=== PATIENT | male | born 1965 | race Caucasian/White ===

== ENCOUNTER 2018-10-08 11:40 | Emergency (ER) | payer OTHER ==
--- NOTE | 2018-10-08 13:18 | RAD REPORT ---
EXAM DESCRIPTION: RAD - Chest Pa And Lat (2 Views) - 10/08/2018 1:06 pm CLINICAL HISTORY: Cough;Chest pain Chest pain. COMPARISON: No comparisons FINDINGS: The lungs are clear. The heart is normal in size. No displaced fractures. IMPRESSION: No acute or concerning finding suspected.
--- NOTE | 2018-10-08 13:44 | EDPHYS ---
Physician Documentation [facility] Name: Demetrius Castanon Age: 53 yrs Sex: Male : 1965 Arrival Date: 10/08/2018 Time: 11:41 Bed 2 Private MD: Elizabeth Austin H ED Physician Sher Reece HPI: 10/08 12:02 This 53 yrs old Male presents to ER via Ambulatory with complaints of Chest rn Pain. 12:02 The patient or guardian reports chest pain that is located primarily in the chest rn diffusely. 12:02 Onset: 3 day(s) ago. The pain does not radiate. Associated signs and symptoms: rn Pertinent positives: cough, Pertinent negatives: abdominal pain, diaphoresis, dizziness, headache, lightheadedness, nausea, near syncope, palpitations, recent travel, shortness of breath, syncope, vomiting. The chest pain is described as sharp. Duration: The patient or guardian reports multiple episodes, that are intermittent. Modifying factors: The symptoms are alleviated by nothing. the symptoms are aggravated by cough. Severity of pain: At its worst the pain was mild in the emergency department the pain is unchanged. The patient has not experienced similar symptoms in the past. Reports chest pain, both sides, when coughs, recently [facility] , given zithromax for bronchitis, reports multiple family members sick recently, + productive cough, no dyspnea, no hx of dvt/pe, no hx of heart problems. Afebrile. Reports tomorrow last day of abx for him. Chest pain only lasts for a few minutes and really only when he coughs. . Historical: - Allergies: 11:44 Aspirin; sv - PMHx: 11:44 None; sv - PSHx: 11:44 None; sv - Immunization history:: Flu vaccine is up to date. - Social history:: Smoking status: Patient/guardian denies using tobacco. - Ebola Screening: : No symptoms or risks identified at this time. - Family history:: not pertinent. - Hospitalizations: : No recent hospitalization is reported. ROS: 12:02 Constitutional: Negative for fever, chills, and weight loss, Eyes: Negative for injury, rn pain, redness, and discharge, Cardiovascular: Negative for palpitations, and edema Respiratory: Negative for shortness of breath, wheezing Abdomen/GI: Negative for abdominal pain, nausea, vomiting, diarrhea, and constipation, MS/Extremity: Negative for injury and deformity, Skin: Negative for injury, rash, and discoloration, Neuro: Negative for headache, weakness, numbness, tingling, and seizure. Exam: 12:02 Constitutional: This is a well developed, well nourished patient who is awake, alert, rn and in no acute distress. Head/Face: Normocephalic, atraumatic. ENT: MMM, no stridor Cardiovascular: Regular rate and rhythm with a normal S1 and S2. No JVD. No pulse deficits. Respiratory: Lungs have equal breath sounds bilaterally, clear to auscultation, No rales, rhonchi or wheezes noted. No increased work of breathing, no retractions or nasal flaring. Skin: Warm, dry with normal turgor. Normal color with no rashes, no lesions, and no evidence of cellulitis. MS/ Extremity: Pulses equal, no cyanosis. Neurovascular intact. Full, normal range of motion. Equal circumference. Neuro: Awake and alert, GCS 15, oriented to person, place, time, and situation. Cranial nerves II-XII grossly intact. Motor strength 5/5 in all extremities. Sensory grossly intact. Vital Signs: 11:45 BP 148 / 91; Pulse 78; Resp 20; Pulse Ox 97% ; Weight 90.72 kg; Height 6 ft. 2 in. sv (187.96 cm); Pain 7/10; 13:13 BP 112 / 68; Pulse 64; Resp 18; Pulse Ox 97% on R/A; aj1 11:45 Body Mass Index 25.68 (90.72 kg, 187.96 cm) sv MDM: 11:52 Patient medically screened. rn 13:41 Differential diagnosis: acute pericarditis, coronary artery disease chest wall pain, rn costochondritis, pericarditis, pleurisy, pneumonia, pneumothorax. Data reviewed: vital signs, nurses notes, EKG, radiologic studies, plain films, and as a result, I will discharge patient. Counseling: I had a detailed discussion with the patient and/or guardian regarding: the historical points, exam findings, and any diagnostic results supporting the discharge/admit diagnosis, radiology results, the need for outpatient follow up, to return to the emergency department if symptoms worsen or persist or if there are any questions or concerns that arise at home. Special discussion: I discussed with the patient/guardian in detail that at this point there is no indication for admission to the hospital. It is understood, however, that if the symptoms persist or worsen the patient needs to return immediately for re-evaluation. ED course: Pt with normal CXR, normal ECG, normal vitals, most likely not improving because viral process given multiple family members with symptoms, already on abx. Will dc home with pcp f/u and OTC anti-inflammatory. . 10/08 12:01 Order name: XRAY Chest Pa And Lat (2 Views) rn 10/08 12:01 Order name: EKG; Complete Time: 12: rn 10/08 12:01 Order name: EKG - Nurse/Tech; Complete Time: 12:04 rn Administered Medications: No medications were administered Disposition: 10/08/18 13:43 Discharged to Home. Impression: Chest pain, unspecified, Pleurisy. - Condition is Stable. - Discharge Instructions: Nonspecific Chest Pain, Pleurisy, Cough, Adult. - Medication Reconciliation Form, Thank You Letter, Antibiotic Education, Prescription Opioid Use form. - Follow up: Private Physician; When: As needed; Reason: Recheck today's complaints, Re-evaluation by your physician. - Problem is new. - Symptoms have improved. Signatures: Dispatcher [employer] EDMS Therese Keene RN RN aj1 Mackenzie Chang RN RN sv Sher Reece MD MD turner in: (The following items were deleted from the chart) 13:54 13:43 10/08/2018 13:43 Discharged to Home. Impression: Chest pain, unspecified; aj1 Pleurisy. Condition is Stable. Forms are Medication Reconciliation Form, Thank You Letter, Antibiotic Education, Prescription Opioid Use. Follow up: Private Physician; When: As needed; Reason: Recheck today's complaints, Re-evaluation by your physician. Problem is new. Symptoms have improved. rn
--- NOTE | 2018-10-08 13:44 | ER ---
Nurse's Notes [facility] Name: Demetrius Castanon Age: 53 yrs Sex: Male : 1965 Arrival Date: 10/08/2018 Time: 11:41 Bed 2 Private MD: Elizabeth Austin H Diagnosis: Chest pain, unspecified;Pleurisy Presentation: 10/08 11:43 Presenting complaint: Patient states: midsternal chest pain started a few days ago was sv seen at [place], but today the pain is worse than before. c/o headache, toothpain, productive cough, denies nausea/vomiting. Transition of care: patient was not received from another setting of care. Onset of symptoms was September 2018. Care prior to arrival: None. 11:43 Method Of Arrival: Ambulatory sv 11:43 Acuity: DEVONTE 3 sv 13:53 Risk Assessment: Do you want to hurt yourself or someone else?. Initial Sepsis Screen: aj1 Does the patient meet any 2 criteria? No. Patient's initial sepsis screen is negative. Does the patient have a suspected source of infection? Yes: Productive cough/pneumonia. Historical: - Allergies: 11:44 Aspirin; sv - PMHx: 11:44 None; sv - PSHx: 11:44 None; sv - Immunization history:: Flu vaccine is up to date. - Social history:: Smoking status: Patient/guardian denies using tobacco. - Ebola Screening: : No symptoms or risks identified at this time. - Family history:: not pertinent. - Hospitalizations: : No recent hospitalization is reported. Screenin:00 Abuse screen: Denies threats or abuse. Denies injuries from another. Nutritional aj1 screening: No deficits noted. Tuberculosis screening: No symptoms or risk factors identified. 13:53 Fall Risk None identified. aj1 Assessment: 12:00 General: Appears in no apparent distress. comfortable, Behavior is calm, cooperative, aj1 appropriate for age. Pain: Complains of pain in chest Pain does not radiate. Quality of pain is described as tightness Pain began 2-3 days ago. Is intermittent. Neuro: Level of Consciousness is awake, alert, obeys commands. Cardiovascular: Reports chest pain, shortness of breath, Heart tones S1 S2 present Patient's skin is warm and dry. Respiratory: Reports cough that is productive, Airway is patent Respiratory effort is even, unlabored, Respiratory pattern is regular, symmetrical, Breath sounds are clear bilaterally. GI: No signs and/or symptoms were reported involving the gastrointestinal system. : No signs and/or symptoms were reported regarding the genitourinary system. Derm: No signs and/or symptoms reported regarding the dermatologic system. Skin is pink, warm \T\ dry. normal. Musculoskeletal: No signs and/or symptoms reported regarding the musculoskeletal system. Circulation, motion, and sensation intact. 13:13 Reassessment: Patient appears in no apparent distress at this time. No changes from aj1 previously documented assessment. Patient and/or family updated on plan of care and expected duration. Pain level reassessed. Patient is alert, oriented x 3, equal unlabored respirations, skin warm/dry/pink. Vital Signs: 11:45 BP 148 / 91; Pulse 78; Resp 20; Pulse Ox 97% ; Weight 90.72 kg; Height 6 ft. 2 in. sv (187.96 cm); Pain 7/10; 13:13 BP 112 / 68; Pulse 64; Resp 18; Pulse Ox 97% on R/A; aj1 11:45 Body Mass Index 25.68 (90.72 kg, 187.96 cm) sv ED Course: 11:41 Patient arrived in ED. rg4 11:42 Elizabeth Austin DO is Private Physician. rg4 11:44 Triage completed. sv 11:45 Arm band placed on. sv 11:52 Sher Reece MD is Attending Physician. rn 11:52 Therese Keene RN is Primary Nurse. aj1 12:00 Patient has correct armband on for positive identification. Pulse ox on. NIBP on. aj1 12:00 No provider procedures requiring assistance completed. Patient maintains SpO2 aj1 saturation greater than 95% on room air. 12:16 EKG done, by geothermal technician. reviewed by Sher Reece MD. sm3 12:55 Patient moved to radiology via wheelchair. jb2 13:02 X-ray completed. Patient tolerated procedure well. jb2 13:04 Patient moved back from radiology. jb2 13:53 Patient did not have IV access during this emergency room visit. aj1 14:43 XRAY Chest Pa And Lat (2 Views) In Process Unspecified. EDMS Administered Medications: No medications were administered Outcome: 13:43 Discharge ordered by . rn 13:54 Discharged to home ambulatory. aj1 13:54 Condition: good 13:54 Discharge instructions given to patient, Instructed on discharge instructions, follow up and referral plans. Demonstrated understanding of instructions, follow-up care. 13:54 Patient left the ED. aj1 Signatures: Dispatcher [employer] Therese Ferrara RN RN aj1 Mackenzie Chang RN RN sv Buechter, Jesse jb2 Sher Reece MD MD rn Garcia, Rubi Samira Cornejo 3
--- NOTE | 2018-10-08 13:59 | EKG ---
Test Date: 2018-10-08 Test Time: 11:55:19 Mapping Editor: ROHINI MEASUREMENT RESULTS: Intervals: Rate: 78 MD: 134 QRSD: 90 QT: 364 QTc: 414 [place]: P: 76 MD: 134 QRS: 71 T: 51 INTERPRETIVE STATEMENTS: Normal sinus rhythm Normal ECG No previous ECG available for comparison Electronically Signed On 10-08-18 13:58:30 [employer] by Trevor Kinsey
== END 2018-10-08 13:54 | disposition home or self-care (01) ==
LOC: ER 11:40
DX: R09.1 Pleurisy (principal); Z88.6 Allergy status to analgesic agent
CPT/HCPCS: 71046; 93005

== ENCOUNTER 2024-12-22 08:21 | Emergency (ER) | payer OTHER ==
--- OUTSIDE RECORDS SUMMARY | 2024-12-22 08:25 | XMS REPORT | Continuity of Care Document ---
Author Name Unknown Address [address] [facility] [address] [place] [address] [facility] Address [address] [facility] [address] [place] [address] Care Team Providers Care Advanced Clinical Specialist Name Role Phone Pcp, Pcp Primary Care Physician BOLIVAR Proctor Attending Clinician LINNEA Lorenzo Attending Clinician ANIBAL Leon Attending Clinician KERRIE Vasquez Attending Clinician Anne-Marie Rowley MD, Lillian Garay Attending Clinician Adrián SIMMONS, Kerrie Marvin Attending Clinician CORINA PUENTE Admitting Clinician Un available Payers Payer Name Policy Type Policy Number Effective Date Expirati on Date Source [facility] VIOLETTE FINLEY COPAY FOCUS 9 [id number] 2024 00:00:00 SHELTON KIMBERLEY [employer] EXCHANGE Exchange [id number] 2024 00:00:00 GENERIC TPL Other [id number] 2024 00:00:00 Problems Condition Name Condition Details Condition Category Status Onset Date Resolution Date Last Treatment Date Treating Clinician Comments Source ERRONEOUS ENCOUNTER ERRONEOUS ENCOUNTER Disease Active 4- 00:00: 00 Kimberley chou Acute low back pain without sciatica Acute low back pain without sciatica Disease Active - 00:00: 00 Kimberley Seybold - Externa l Blood pressure elevated without history of HTN Blood pressure elevated without history of HTN Disease Active 11-16 00:00: 00 Kimberley Reecea l Allergies, Adverse Reactions, Alerts Allergy Name Allergy Type Status Severity Reaction(s) Onset Date Inactive Date Treating Clinician Comments Source Aspirin Propensi ty to adverse reaction s Active 11-16 00:00: 00 Trouble with hearing Kimberley Reecea l Social History Social Habit Start Date Stop Date Quantity Comments Source Gender identity [facility] Sexual orientation M [facility] [place] History of tobacco use Cigarette Smoker Kimberley Ten javy - External Alcoholic beverage intake 2024-12-21 00:00:00 2024-12-21 00:00:00 Lifetime non-drinker (finding) Kimberley Roca - External History of Social function 2024-12-21 00:00:00 2024-12-21 00:00:00 Kimberley Roca - External Sex 2024-02-09 20:25:51 2024-02-09 20:25:51 Male (finding) Kimberley Caaljavy - External Sex assigned at 1965 00:00:00 1965 00:00:00 Kimberley best - External Smoking Status Start Date Stop Date Source Tobacco smoking consumption unknown [facility] c Smokes tobacco daily 2024-11-16 00:00:00 Kimberley best - External Medications Ordered Medication Name Filled Medication Name Start Date Stop Date Current Medication? Ordering Clinician Indication Dosage Frequency Signature (SIG) Comments Components Source Pantoprazol e Sodium 40 MG oral Tablet Delayed Response 12-14 00:00: 00 01-14 04:59 :00 Yes 40mg Take 1 tablet (40 mg total) by mouth every morning (before breakfast) . Kimberley chou Carvedilol 12.5 MG oral Tablet 12-13 00:00: 00 01-10 04:59 :00 Yes 12.5mg Take 1 tablet (12.5 mg total) by mouth in the morning and 1 tablet (12.5 mg total) in the evening. Take with meals. Kimberley chou dexmedeTOMI Dine in NS (Precedex) 400 mcg in 100 mL (4 mcg/mL) infusion dexmedeTOMI Dine in NS (Precedex) 400 mcg in 100 mL (4 mcg/mL) infusion 12-07 14:35: 00 Yes .2ug/kg /h 0.2-1.5 mcg/kg/hr ?83.9 kg (4.195-31. 4625 mL/hr, rounded to 4.2-31.46 mL/hr), Intravenou s, Continuous , Starting on Thu12/07/24 at 1435, Infusion Type: Titrate, Initial Dose (mcg/kg/hr ): 0.2, Titrate by (mcg/kg/hr ): 0.1, Every (minutes): 30, Goal: (0) to (-1), Max Dose (mcg/kg/hr ): 1.5 Sheridan Das rocuronium (ZeMuron) injection 80 mg rocuronium (ZeMuron) injection 80 mg 12-07 14:30: 00 12-07 14:40 :00 No 80mg 80 mg, Intravenou s, Once, On Thu12/07/24 at 1440, For 1 dose, PARALYTIC - do not give without appropriat e mechanical ventilatio n, sedation, and analgesia. Prior to extubation , flush line or change tubing (to prevent residual medication being later flushed into a non-intuba bo patient). Sheridan Das ondansetron (Zofran) injection 4 mg ondansetron (Zofran) injection 4 mg 12-07 14:15: 00 12-07 14:10 :00 No 4mg 4 mg, Intravenou s, Once, On Thu12/07/24 at 1415, For 1 dose Sheridan Das ondansetron (Zofran) 4 MG/2ML injection - Pyxis Override Pull ondansetron (Zofran) 4 MG/2ML injection - Pyxis Override Pull 12-07 14:10: 30 12-07 14:10 :00 No Starting on Thu12/07/24 at 1410, For 1 dose, Created by cabinet override Sheridan Das lactated Ringer's bolus 1,000 mL lactated Ringer's bolus 1,000 mL 12-07 11:15: 00 12-07 12:15 :00 No 1000mL 1,000 mL, Intravenou s, at 1,000 mL/hr, Administer over 1 Hours, Once, On Thu12/07/24 at 1115, For 1 dose Sheridan Hernandez Epic propofol (Diprivan) 10 mg/mL infusion propofol (Diprivan) 10 mg/mL infusion 12-07 09:20: 00 Yes [id number] 10ug/kg /min 10-50 mcg/kg/min ?83.9 kg (5.034-25. 17 mL/hr, rounded to 5.03-25.17 mL/hr), Intravenou s, Continuous , Starting on Thu12/07/24 at 0920, Infusion Type: Titrate, Initial Dose (mcg/kg/mi n): 10, Titrate by (mcg/kg/mi n): 5, Every (minutes): 15, Goal: Refer to Target Arousal RASS Score on Storyboard , Max Dose (mcg/kg/mi n): 50, Indication s: Sedation in Intubated Patients Sheridan Hernandez Epic fentaNYL Citrate (Sublimaze) 1000 MCG/20ML infusion fentaNYL Citrate (Sublimaze) 1000 MCG/20ML infusion 12-07 09:20: 00 Yes 50ug/h 50-200 mcg/hr (1-4 mL/hr), Intravenou s, Continuous , Starting on Thu12/07/24 at 0920, May rebolus fentanyl 25 mcg IV in addition to each infusion increase. Notify physician when dose of 200 mcg/hr is reached., Infusion Type: Titrate, Initial Dose (mcg/hr): 50, Titrate by (mcg/hr): 25, Every (minutes): 15, Goal: Refer to Target Arousal RASS Score on Storyboard , Max Dose (mcg/hr): 200 Sheridan Hernandez Epic iohexol (OMNIPaque) 350 MG/ML injection 120 mL iohexol (OMNIPaque) 350 MG/ML injection 120 mL 12-07 09:18: 54 12-07 09:25 :00 No 120mL 120 mL, Intravenou s, Once in imaging, Starting on Thu12/07/24 at 0918, For 1 dose Sheridan Hernandez Epic sodium chloride (NS) 0.9 % flush 10 mL sodium chloride (NS) 0.9 % flush 10 mL 12-07 09:16: 47 Yes 10mL [Order 1 Start] Name: Insert peripheral IV Signed Summary: Once, On Thu12/07/24 at 0917, For 1 occurrence [Order 1 End] [Order 2 Start] Name: Saline lock IV Signed Summary: Once, On Thu12/07/24 at 0917, For 1 occurrence [Order 2 End] [Order 3 Start] Name: sodium chloride (NS) 0.9 % flush 10 mL Signed Summary: 10 mL, Intravenou s, As needed, line care, Starting on Thu12/07/24 at 0916 [Order 3 End] Sheridan Hernandez Epic propofol (Diprivan) 1000 MG/100ML infusion - Pyxis Override Pull propofol (Diprivan) 1000 MG/100ML infusion - Pyxis Override Pull 12-07 09:12: 59 12-07 09:30 :00 No Starting on Thu12/07/24 at 0912, For 1 dose, Created by cabinet override General Anesthetic - do not give without appropriat e ventilatio n support. Do not administer propofol in same IV catheter as blood or plasma. Discard any unused portion of propofol vials and tubing after 12 hours. Sheridan Hernandez Epic fentaNYL Citrate (Sublimaze) 1000 MCG/20ML infusion - Pyxis Override Pull fentaNYL Citrate (Sublimaze) 1000 MCG/20ML infusion - Pyxis Override Pull 12-07 09:12: 42 12-07 09:30 :00 No Starting on Thu12/07/24 at 0912, For 1 dose, Created by cabinet override Sheridan Hernandez Epic sodium chloride (NS) 0.9 % flush 10 mL sodium chloride (NS) 0.9 % flush 10 mL 12-07 09:09: 00 Yes 10mL [Order 1 Start] Name: Insert peripheral IV Signed Summary: Once, On Thu12/07/24 at 0909, For 1 occurrence [Order 1 End] [Order 2 Start] Name: Saline lock IV Signed Summary: Once, On Thu12/07/24 at 0909, For 1 occurrence [Order 2 End] [Order 3 Start] Name: sodium chloride (NS) 0.9 % flush 10 mL Signed Summary: 10 mL, Intravenou s, As needed, line care, Starting on Thu12/07/24 at 0909 [Order 3 End] Sheridan Das sodium chloride 0.9 % infusion 250 mL sodium chloride 0.9 % infusion 250 mL 12-07 09:09: 00 12-08 09:08 :00 No 250mL 250 mL, Intravenou s, As needed, To prime line and flush remaining blood products, Starting on Thu12/07/24 at 0909, For 24 hours Sheridan Das Baclofen 10 MG oral Tablet 11-16 00:00: 00 Yes [id number] 10mg [id number] 3D Take 1 tablet (10 mg total) by mouth 3 times daily as needed for muscle spasms or pain. Kimberley Roca - Externa l Vital Signs Vital Name Observation Time Observation Value Comments S ource Systolic blood pressure 2024-12-21 19:49:00 143 mm[Hg] Kimberley Caalo ld - External Diastolic blood pressure 2024-12-21 19:49:00 80 mm[Hg] Kimberley Hill ld - External Heart rate 2024-12-21 19:49:00 78 /min Braydon Roca - External Body temperature 2024-12-21 19:49:00 37.06 Amelia Kimberley Roca - External Respiratory rate 2024-12-21 19:49:00 16 /min Kimberley Roca - External Body height 2024-12-21 19:49:00 188 cm Tammie stout ybold - External Body weight 2024-12-21 19:49:00 98.431 kg Tammie Caalold - External BMI 2024-12-21 19:49:00 27.86 kg/m2 Tammie Roca - External Oxygen saturation in Arterial blood by Pulse oximetry 2024-12-21 19:49:00 100 /min Kimberley Hill ld - External Oxygen saturation in Arterial blood by Pulse oximetry 2024-12-07 15:33:00 95 /min [facility] Diastolic blood pressure 2024-12-07 14:30:00 88 mm[Hg] [facility] Heart rate 2024-12-07 14:30:00 104 /min [facility] [place] [facility] Body temperature 2024-12-07 14:30:00 34.61 Amelia [facility] Respiratory rate 2024-12-07 14:30:00 11 /min [facility] Systolic blood pressure 2024-12-07 14:30:00 150 mm[Hg] [facility] Body weight 2024-12-07 09:19:00 83.915 kg Arthur rial [place] [facility] BMI 2024-12-07 09:19:00 28.13 kg/m2 Arthur rial David [facility] Body height 2024-12-07 09:15:00 172.7 cm Arthur rial [facility] Oxygen saturation in Arterial blood by Pulse oximetry 2024-12-07 15:33:00 95 /min [facility] Diastolic blood pressure 2024-12-07 14:30:00 88 mm[Hg] [facility] Heart rate 2024-12-07 14:30:00 104 /min [facility] temperature 2024-12-07 14:30:00 34.61 Amelia [facility] Respiratory rate 2024-12-07 14:30:00 11 /min [facility] Systolic blood pressure 2024-12-07 14:30:00 150 mm[Hg] [facility] Body weight 2024-12-07 09:19:00 83.915 kg Arthur rial [place] [facility] BMI 2024-12-07 09:19:00 28.13 kg/m2 Arthur rial [place] [facility] Body height 2024-12-07 09:15:00 172.7 cm Arthur rial [place] [facility] Systolic blood pressure 2024-11-16 17:00:00 178 mm[Hg] Kimberley Seybo ld - External Diastolic blood pressure 2024-11-16 17:00:00 100 mm[Hg] Kimberley Seybo ld - External Heart rate 2024-11-16 16:25:00 107 /min Kelse y Seybold - External Body temperature 2024-11-16 16:25:00 36.83 Amelia Kimberley Seybold - External Respiratory rate 2024-11-16 16:25:00 18 /min Kimberley Roca - External Body height 2024-11-16 16:25:00 188 cm Tammie Roca - External Body weight 2024-11-16 16:25:00 104.781 kg Tammie Roca - External BMI 2024-11-16 16:25:00 29.66 kg/m2 Tammie Roca - External Oxygen saturation in Arterial blood by Pulse oximetry 2024-11-16 16:25:00 100 /min Kimberley Hill ld - External Procedures Procedure Date / Time Performed Performing Clinician Source BLOOD GAS, VENOUS 2024-12-07 14:24:00 Fransico Mckeon [facility] LACTIC ACID LEVEL 2024-12-07 13:17:00 Lillian Rowley [facility] [place] BLOOD GAS, VENOUS 2024-12-07 11:18:00 Fransico Mckeon Joey [facility] LACTIC ACID WITH 2 HOUR REFLEX 2024-12-07 11:18:00 Lillian Rowley [facility] XR ABDOMEN 1 V FOR PLACEMENT 2024-12-07 10:07:00 Lillian Rowley [facility] BASIC METABOLIC PANEL 2024-12-07 09:49:00 Robyn Milner [facility] HEPATIC FUNCTION PANEL 2024-12-07 09:49:00 Ela Milner [facility] AMMONIA LEVEL 2024-12-07 09:49:00 Fransico Morgan Joey [facility] LIPASE LEVEL 2024-12-07 09:49:00 Kerrie Milner [facility] [place] T4 FREE 2024-12-07 09:49:00 Fransico Morgan [facility] THYROID STIMULATING HORMONE W/ REFLEX FREE T4 2024-12-07 09:49:00 Fransico Zendejas [facility] UA WITH MICROSCOPIC NO CULTURE 2024-12-07 09:39:00 Lillian Rowley [facility] DRUG SCREEN URINE (8 DRUGS) 2024-12-07 09:39:00 Lillian Rowley [facility] XR CHEST 1 VIEW 2024-12-07 09:33:18 Merrill Leija [facility] CT ANGIOGRAM BRAIN NECK 2024-12-07 09:26:00 McNu tt, Kaela Mari [facility] CT CHEST ABDOMEN PELVIS W IV CONTRAST 2024-12-07 09:26:00 Kaela Leija Mari [facility] CT BRAIN WO IV CONTRAST 2024-12-07 09:18:00 McNu tt, Kaela Mari [facility] CT CERVICAL SPINE WO IV CONTRAST 2024-12-07 09:18:00 [facility] 2024-12-07 09:10:00 Lillian Rowley [facility] HEPATIC FUNCTION PANEL 2024-12-07 09:10:00 Torito machado Fransico [facility] SALICYLATE LEVEL 2024-12-07 09:10:00 Dario waldrop [facility] ACETAMINOPHEN LEVEL 2024-12-07 09:10:00 Neeta pinedaer [facility] ETHANOL LEVEL 2024-12-07 09:10:00 Lillian Rowley [facility] CREATINE KINASE (CK TOTAL) 2024-12-07 09:10:00 Lillian Rowley [facility] BLOOD GAS, VENOUS 2024-12-07 09:10:00 [facility]NES[facility] 2024-12-07 09:10:00 Fransico Morgan [facility] TYPE AND SCREEN 2024-12-07 09:10:00 [facility] COMPLETE BLOOD COUNT W/DIFF AND PLATELET 2024-12-07 09:10:00 Lillian Rowley [facility] TROPONIN I HIGH SENSITIVITY (SINGLE ORDER) 2024-12-07 09:10:00 Fransico Zendejas [facility] THROMBOELASTOGRAPH RAPID 2024-12-07 09:10:00 Sa elizabeth Rowley [facility] LACTIC ACID WITH 2 HOUR REFLEX 2024-12-07 09:10:00 Lillian Rowley [facility] COMPLETE BLOOD COUNT 2024-12-07 09:10:00 Halley Lillian Garay [facility] AUTOMATED DIFFERENTIAL 2024-12-07 09:10:00 Troy Rowley [facility] REFLEX MORPHOLOGY - DO NOT ORDER 2024-12-07 09:10:00 Halley Lillian Garay [facility] Ventilator 2024-12-07 00:00:00 [facility] XR chest 1 view 2024-12-07 00:00:[address] [facility] Encounters Start Date/Time End Date/Time Encounter Type Admission Type Attending [facility] Facility Care Department Encounter ID Source 2024-12-21 15:00:00 2024-12-21 15:00:00 Outpatient [facility] PENN [id number] Kimberley Roca 2024-12-14 00:00:00 2024-12-14 00:00:00 Outpatient PROVIDER, LINNEA JACOBSON [id number] Kimberley Roca 2024-12-07 16:36:00 2024-12-13 17:24:00 Inpatient Elective ANIBAL THAKKAR [facility] General Medicine [id number] [facility] 2024-12-07 09:08:00 2024-12-07 15:54:00 Emergency [facility] KERRIE MILNER [facility] General Medicine [id number] [facility] 2024-12-07 09:08:00 2024-12-07 15:54:00 [facility] [id number] Sheridan chou [facility] 2024-11-16 10:30:00 2024-11-16 10:30:00 Outpatient BOLIVAR PENN [id number] Kimberley Roca Consult Notes Date/Time Note Provider Source 2024-12-07 15:05:30 Associated Order(s): IP CONSULT TO SOCIAL WORK ALAF RIDDLE completed MOT. signed. Verbal consent to transfer obtain via phone from patient's father (Zully Castanon [phone]) witnessed by ED SW. Original MOT and face sheet left at bedside for [facility]. Copy of MOT placed on patient's chart. Primary nurse notified via secure chat. [facility]ending [facility] transport to [facility] ETA: [id number]. MOT Info: Initiated time: 1219 Time of Acceptance: 1433 Accepting Facility Name: [facility] Accepting Facility Address: [address] [place] [address] Accepting MD Name: Jazlyn Interiano MD Accepting Carousel Operator: hCelsea Sy RN Room #: MICU Report #: [phone] Copy of MOT faxed to Transfer Center. Courtney Dove RN [facility] Notes Date/Time Note Provider Source 2024-12-07 15:54:46 [facility] * Jones Suicide Severity Rating Scale (Screener/Recent Self-Report) Question Answer Date of Assessment Author 1. Wish to be (Past 1 Month) No 025 9:20 AM Nandini Hassan, ALFA 2. Non-Specific Active Suici miles Thoughts (Past 1 Month) No 12/07/2024 9:20 AM Mahamed Hassan RN 6. Suicidal Behavior (Lifetime) No 9:20 AM Nandini Hassan [id number] 15:54:46Pending Results Scheduled Orders Name Type Priority Associated Diagnoses Orde r Schedule Ventilator Respiratory Care STAT Continuo us until discontinued starting 12/07/2024 XR chest 1 view Imaging STAT Once for 1 Occurrences starting 12/07/2024 until 12/07/2024 Health Maintenance Due Date Last Done Comments Lipid Panel Annual Physical 09/21/1903 DTaP/Tdap/Td Vaccines (1 - Tdap) 09/21/1919 Pneumococcal Vaccine: 50+ Ye ars (1 of 1 - PCV) 09/21/1950 Zoster Vaccines (1 of 2) 09/21/1950 Respiratory Syncytial Virus (RSV) or >=60 (1 - 1-dose 75+ series) 09/21/1975 Influenza Vaccine (#1) 2024 HIB Vaccines Aged Out No longer eligi ble based on patient's age to complete this topic HPV Vaccines Aged Out No longer eligi ble based on patient's age to complete this topic Hepatitis A Vaccines Aged Out No long er eligible based on patient's age to complete this topic Hepatitis B Vaccines Aged Out No long er eligible based on patient's age to complete this topic IPV Vaccines Aged Out No longer eligi ble based on patient's age to complete this topic Meningococcal Vaccine Aged Out No jordi valarie eligible based on patient's age to complete this topic Rotavirus Vaccines Aged Out No longer eligible based on patient's age to complete this topic Mikaela [id number] 15:54:46 Mikaela Hernandez
--- NOTE | 2024-12-22 09:04 | RAD REPORT ---
EXAM: CT brain without contrast HISTORY: weakness/numbness left arm COMPARISON: None TECHNIQUE: Multiple contiguous axial images were obtained and a CT of the brain without contrast. Sag ittal and coronal reformats were performed. One or more of the following dose reduction techniques were used: Automated exposure control, adjust ment of the mA and/or kV according to patient size, and/or iterative reconstruction. FINDINGS: No evidence of hydrocephalus, intracranial hemorrhage, or extra-axial fluid collection. The brain is normal in morphology. No evidence of midline shift or areas of brain edema. The calvarium is intact. The visualized paranasal sinuses and mastoid air cells are essentially clear . IMPRESSION: No evidence of acute intracranial abnormality. EXAM: CT of the cervical spine without contrast HISTORY: Neck pain, injury weakness/numbness left arm TECHNIQUE: Multiple contiguous axial images were obtained in a CT of the cervical spine without contr ast. Sagittal and coronal reformats were performed. FINDINGS: The vertebral bodies demonstrate normal height and alignment. No evidence of acute fracture or subluxation.. Mild lower cervical degenerative changes. No prevertebral soft tissue swelling is seen. The posterior facets are well aligned. Normal alignment of the skull base with the cervical spine is seen. The lung apices are unremarkable. IMPRESSION: No evidence of acute osseous abnormality of the cervical spine.
[2024-12-22 09:22] LABS: Absolute Basophils 0.1 K/uL (0-0.5); Absolute Lymphocytes (CBC) 0.9 K/uL (0.7-4.9); Absolute Monocytes 0.3 K/uL (0.1-1.3); Absolute Neutrophil 3.9 K/uL (1.8-8.0); Basophils % 1.1 % (0-1.3); Eosinophils % 0.9 % (0-4.4); Hematocrit 44.8 % (39.6-49.0); Lymphocytes % 17.2 % (15.3-44.8); MCH 31.1 pg (27.0-35.0); MCHC 33.5 g/dL (32.0-36.0); MPV 7.2 fL (7.6-11.3); Monocytes % 6.1 % (3.3-12.3); Neutrophils % 74.7 % (41.7-73.7); Platelets 406 thou/uL (152-406); RBC Red Blood Cell Count 4.82 M/uL (4.33-5.43); Red Cell Distribution Width 13.3 % (12.1-15.2)
[2024-12-22 09:29] LABS: PT Prothrombin Time 14.1 SECONDS (10-13.0); Protime INR 1.25
[2024-12-22 09:44] LABS: Anion Gap 8.6 mEq/L (5.0-15.0); Potassium 3.6 mEq/L (3.5-5.1); Troponin High Sensitivity 6.8 pg/mL (<58.9)
--- NOTE | 2024-12-22 09:59 | RAD REPORT ---
EXAMINATION: ONE VIEW CHEST XR CLINICAL INDICATION: left arm pain TECHNIQUE: Frontal chest projection is submitted. Examination is limited by patient positioning and t echnique. COMPARISON: 10/08/2018 FINDINGS: The lungs are well inflated and clear. The heart is upper limit of normal in size. No displaced fract ures identified. IMPRESSION: No acute intrathoracic abnormalities.
[2024-12-22] MEDS ORDERED: ALPRAZOLAM 1 MG TABLET ONE (11:12)
--- NOTE | 2024-12-22 12:27 | RAD REPORT ---
EXAMINATION: MRI BRAIN WITHOUT CONTRAST CLINICAL INDICATION: left arm weakness TECHNIQUE: Multiplanar multisequence MR images of the brain were obtained without intravenous contras t. Unless otherwise specified, incidental findings do not require dedicated imaging follow-up. COMPARISON: No prior exam. FINDINGS: INTRACRANIAL: Diffusion-weighted images show no acute or early subacute infarction. No abnormal brain parenchymal signal. The ventricles are normal in size and morphology. No augmented susceptibility. There is no mass effect or midline shift. No abnormal extraaxial fluid collection. VASCULATURE: Normal signal voids in the larger intracranial arteries and dural venous sinuses. SINUSES: The paranasal sinuses and mastoid air cells are predominantly clear. BONE: The marrow signal pattern is within normal limits. IMPRESSION: Negative for acutre CVA or other acute intracranial finding.
--- NOTE | 2024-12-22 12:30 | RAD REPORT ---
EXAMINATION: MRI CERVICAL SPINE WITHOUT CONTRAST CLINICAL INDICATION: Male, 59 years old. lefft arem weakness TECHNIQUE: Multiplanar multisequence MR images were obtained of the cervical spine without intravenou s contrast. Unless otherwise specified, incidental findings do not require dedicated imaging follow-up. COMPARISON: No prior exam. FINDINGS: ALIGNMENT: The cervical spine has normal alignment. BONE: Vertebral bodies are normal in height. There is a normal marrow signal pattern. CORD: The cervical spinal cord is normal in size, contour and signal intensity. BRAIN: The included intracranial structures are grossly normal. The craniocervical junction is normal . SOFT TISSUE: The paraspinal soft tissues are normal. EVALUATION OF THE INDIVIDUAL LEVELS: C2-3: Unremarkable. C3-4: Moderate disc/osteophyte complex is present, attenuating the anterior subarachnoid space. Moder ate bilateral uncovertebral and facet spurring causes moderate bilateral exit foraminal stenosis. C4-5: Unremarkable. C5-6: Moderate posterior osteophyte/disc complex is present attenuating the anterior subarachnoid spa ce. Left-sided uncovertebral and facet hypertrophy is present resulting in moderate left-sided exit foraminal stenosis. C6-7: Moderate posterior disc protrusion is present attenuating the anterior subarachnoid space and m ildly narrowing central canal. Significant bilateral exit foraminal stenosis caused by uncovertebral facet spurring. C7-T1: Unremarkable. IMPRESSION: Moderate multilevel cervical spondylosis as detailed. Multiple levels of exit foraminal narrowing see n as described.
--- NOTE | 2024-12-22 12:48 | ER ---
Nurse's Notes [facility] Name: Demetrius Castanon Age: 59 yrs Sex: Male : 1965 Arrival Date: 12/22/2024 Time: 08:21 Bed 11 Private MD: Diagnosis: Cervical disc disorder with radiculopathy, unspecified cervical region;Paresthesia of skin;Weakness Presentation: 12/22 08:32 Chief complaint: Patient states: L arm pain, with severe pain at night, for 2 weeks. + ll1 numbness. Coronavirus screen: Client denies travel out of the [place] in the last 14 days. At this time, the client does not indicate any symptoms associated with coronavirus-19. Ebola Screen: Patient denies travel to an Ebola-affected area in the 21 days before illness onset. Initial Sepsis Screen: Does the patient meet any 2 criteria? No. Patient's initial sepsis screen is negative. Does the patient have a suspected source of infection? No. Patient's initial sepsis screen is negative. Risk Assessment: Do you want to hurt yourself or someone else? Patient reports no desire to harm self or others. Onset of symptoms was December 08, 2024. 08:32 Method Of Arrival: Ambulatory ll1 08:32 Acuity: DEVONTE 4 ll1 Triage Assessment: 08:34 General: Appears uncomfortable, Behavior is calm, cooperative, appropriate for age. ll1 Pain: Complains of pain in left arm. Musculoskeletal: Circulation, motion, and sensation intact. Capillary refill < 3 seconds, in left fingers. Reports numbness in left arm pain in left arm. Historical: - Allergies: 08:34 Aspirin; ll1 - PMHx: 08:34 GERD; ll1 - PSHx: 08:34 hernia repair; ll1 - Immunization history:: Adult Immunizations up to date. - Infectious Disease History:: Denies. - Social history:: Smoking status: Patient denies any tobacco usage or history of. - Family history:: not pertinent. - Hospitalizations: : No recent hospitalization is reported. Screenin:01 Abuse screen: Denies threats or abuse. Nutritional screening: No deficits noted. ll1 Tuberculosis screening: No symptoms or risk factors identified. 10:24 [facility] ED Fall Risk Assessment (Adult) History of falling in the last 3 months, ll1 including since admission No falls in past 3 months (0 pts) Confusion or Disorientation No (0 pts) Intoxicated or Sedated No (0 pts) Impaired Gait No (0 pts) Mobility Assist Device Used No (0 pt) Altered Elimination No (0 pt) Score/Fall Risk Level 0 - 2 = Low Risk Maintained a safe environment, Hourly rounding (assess needs \T\ fall precautionary measures) done. Assessment: 10:50 Reassessment: No changes from previously documented assessment. Patient and/or family ll1 updated on plan of care and expected duration. Pain level reassessed. Patient is alert, oriented x 3, equal unlabored respirations, skin warm/dry/pink. 13:18 Reassessment: No changes from previously documented assessment. Patient and/or family ll1 updated on plan of care and expected duration. Pain level reassessed. Patient is alert, oriented x 3, equal unlabored respirations, skin warm/dry/pink. Vital Signs: 08:32 BP 152 / 107; Pulse 100; Resp 18; Temp 97.8; Pulse Ox 99% ; Weight 97.52 kg; Height 6 ll1 ft. 2 in. ; Pain 8/10; 10:55 BP 161 / 105; Pulse 88; Resp 17; Pain 0/10; ll1 13:18 BP 143 / 99; Pulse 79; Resp 17; Pulse Ox 99% ; Pain 2/10; ll1 08:32 Body Mass Index 27.60 (97.52 kg, 187.96 cm) ll1 08:32 Pain Scale: Adult ll1 10:55 Pain Scale: Adult ll1 13:18 Pain Scale: Adult ll1 ED Course: 08:24 Patient arrived in ED. im 08:26 Sher Reece MD is Attending Physician. rn 08:32 Patient has correct armband on for positive identification. Provided Education on: ER ll1 procedures and process. 08:34 Triage completed. ll1 08:35 Arm band placed on Patient placed in an exam room, on a stretcher. ll1 08:50 CT Head C Spine In Process Unspecified. EDMS 09:16 Basic Metabolic Panel Sent. ty 09:16 CBC with Diff Sent. ty 09:16 NT PRO-BNP Sent. ty 09:16 PT-INR Sent. ty 09:16 Troponin HS Sent. ty 09:17 Initial lab(s) drawn, by mn, sent to lab. Inserted saline lock: 20 gauge in right ty forearm, using aseptic technique. Blood collected. Flushed with 10 mL NS. 09:49 XRAY Chest (1 view) In Process Unspecified. EDMS 12:16 MRI - Brain Wo Cont In Process Unspecified. EDMS 12:16 C Spine Wo Cont In Process Unspecified. EDMS 12:46 Mickey Chamorro MD is Referral Physician. rn 13:18 No provider procedures requiring assistance completed. IV discontinued, intact, ll1 bleeding controlled, No redness/swelling at site. Pressure dressing applied. Administered Medications: 11:16 Drug: ALPRAZolam PO Tablet 1 mg PO once Route: PO; ll1 13:02 Follow up: Response: No adverse reaction; Pain is decreased; RASS: Alert and Calm (0) ll1 13:02 Drug: Decadron - Dexamethasone IVP 10 mg IVP once Route: IVP; Site: right antecubital; ll1 13:18 Follow up: Response: No adverse reaction ll1 Medication: 10:24 VIS not applicable for this client. 1 Outcome: 12:47 Discharge ordered by MD. rn 13:18 Discharged to home ambulatory, ll1 13:18 Condition: stable 13:18 Discharge instructions given to patient, Instructed on discharge instructions, follow up and referral plans. medication usage, Demonstrated understanding of instructions, follow-up care, medications, Prescriptions given X 2, 13:19 Patient left the ED. 1 Signatures: Dispatcher [employer] EDMI Sher Reece MD MD rn Lewis, Lynsay, RN RN 1 Zoie Baig Tylor ty Corrections: (The following items were deleted from the chart) 08:35 08:34 Home Meds: None; 1 ll1 08:35 08:34 Home Meds: Metoprolol Tartrate Oral; 1 ll1 08:35 08:34 PMHx: None; ll1 ll1
--- NOTE | 2024-12-22 12:48 | EDPHYS ---
Physician Documentation [facility] Name: Demetrius Castanon Age: 59 yrs Sex: Male : 1965 Arrival Date: 12/22/2024 Time: 08:21 Bed 11 Private MD: ED Physician Sher Reece HPI: 12/22 11:22 This 59 yrs old Male presents to ER via Ambulatory with complaints of Arm Pain, rn Shoulder Pain. 11:22 The patient or guardian complains of pain, weakness. The complaints affect the left rn arm. Onset: The symptoms/episode began/occurred 2 week(s) ago. Modifying factors: The symptoms are alleviated by nothing. the symptoms are aggravated by nothing. Severity of symptoms: At their worst the symptoms were mild, in the emergency department the symptoms are unchanged. The patient has not experienced similar symptoms in the past. The patient has not recently seen a physician. Patient reports 2 weeks of left arm pain and tingling as well as weakness. Patient has difficulty bending arm at elbow and lifting at shoulder. Definitely more proximal weakness than distal. No leg involvement. No neck injury or pain. No headache.. Historical: - Allergies: 08:34 Aspirin; ll1 - PMHx: 08:34 GERD; ll1 - PSHx: 08:34 hernia repair; ll1 - Immunization history:: Adult Immunizations up to date. - Infectious Disease History:: Denies. - Social history:: Smoking status: Patient denies any tobacco usage or history of. - Family history:: not pertinent. - Hospitalizations: : No recent hospitalization is reported. ROS: 11:22 Constitutional: Negative for fever, chills, and weight loss, Neck: Negative for injury, rn pain, and swelling, Cardiovascular: Negative for chest pain, palpitations, and edema, Respiratory: Negative for shortness of breath, cough, wheezing, and pleuritic chest pain, Abdomen/GI: Negative for abdominal pain, nausea, vomiting, diarrhea, and constipation, Back: Negative for injury and pain, MS/Extremity: Positive for left arm weakness and numbness as well as pain Neuro: Left arm weakness and numbness. No headache. No neck pain. No seizure. Exam: 11:22 Constitutional: This is a well developed, well nourished patient who is awake, alert, rn and in no acute distress. Head/Face: Normocephalic, atraumatic. Cardiovascular: Regular rate and rhythm. No pulse deficits. Respiratory: No increased work of breathing, no retractions or nasal flaring. Skin: No discoloration MS/ Extremity: Pulses equal, no cyanosis. Patient with left arm weakness as well as paresthesia. Unable to flex arm at elbow or keep arm elevated more than 5 seconds. Neuro: Awake and alert, GCS 15, oriented to person, place, time, and situation. Cranial nerves II-XII grossly intact. Normal gait. 15:08 ECG was reviewed by the Attending Physician. rn Vital Signs: 08:32 BP 152 / 107; Pulse 100; Resp 18; Temp 97.8; Pulse Ox 99% ; Weight 97.52 kg; Height 6 ll1 ft. 2 in. ; Pain 8/10; 10:55 BP 161 / 105; Pulse 88; Resp 17; Pain 0/10; ll1 13:18 BP 143 / 99; Pulse 79; Resp 17; Pulse Ox 99% ; Pain 2/10; ll1 08:32 Body Mass Index 27.60 (97.52 kg, 187.96 cm) ll1 08:32 Pain Scale: Adult ll1 10:55 Pain Scale: Adult ll1 13:18 Pain Scale: Adult ll1 MDM: 08:26 Medical Screening Exam initiated rn 10:12 ED course: Consulted and discussed case with Dr. Chamorro, thinks might be neuropathy rn versus brachial plexus problem. Recommends MRI of the brain and C-spine for further evaluation and if does not show cervical cord compression can be worked up as an outpatient with EMG and further studies.. 12:45 Differential diagnosis: Cervical radiculopathy, stroke, disc herniation, spinal cord rn problem. Data reviewed: vital signs, nurses notes, lab test result(s), radiologic studies, CT scan, MRI, and as a result, I will discharge patient. Counseling: I had a detailed discussion with the patient and/or guardian regarding the historical points, exam findings, and any diagnostic results supporting the discharge/admit diagnosis, lab results, radiology results, the need for outpatient follow up, to return to the emergency department if symptoms worsen or persist or if there are any questions or concerns that arise at home. Special discussion: I discussed with the patient/guardian in detail that at this point there is no indication for admission to the hospital. It is understood, however, that if the symptoms persist or worsen the patient needs to return immediately for re-evaluation. Based on the history and exam findings, there is no indication for further emergent testing or inpatient evaluation. I discussed with the patient/guardian the need to see the neurologist for further evaluation of the symptoms. ED course: No acute findings on MRI of brain or neck. Will discharge home with neurology follow-up. No evidence of spinal cord compression or acute CVA. I have personally reviewed all of the results, including but not limited to blood tests and imaging deemed necessary to safely discharge this patient at this time. All results given to and printed out for patient. I personally went over all the results with the patient and answered all questions. Patient will follow-up with PCP and or specialist as discussed. Return precautions given and understood.. 12/22 08:40 Order name: Basic Metabolic Panel; Complete Time: 09:59 rn 12/22 08:40 Order name: CBC with Diff; Complete Time: 09:23 rn 12/22 08:40 Order name: NT PRO-BNP; Complete Time: :59 rn 12/22 08:40 Order name: PT-INR; Complete Time: :59 rn 12/22 08:40 Order name: Troponin HS; Complete Time: :59 rn 12/22 08:40 Order name: CT Head C Spine; Complete Time: :23 rn 12/22 08:40 Order name: XRAY Chest (1 view); Complete Time: 10:00 rn 12/22 10:10 Order name: MRI - Brain Wo Cont; Complete Time: 12:39 rn 12/22 10:20 Order name: C Spine Wo Cont; Complete Time: 12:39 EDMS 12/22 08:40 Order name: Cardiac monitoring; Complete Time: 09:17 rn 12/22 08:40 Order name: EKG - Nurse/Tech; Complete Time: 10:23 rn 12/22 08:40 Order name: IV Saline Lock; Complete Time: :16 rn 12/22 08:40 Order name: Labs collected and sent; Complete Time: :16 rn 12/22 08:40 Order name: O2 Per Protocol; Complete Time: :16 rn 12/22 08:40 Order name: O2 Sat Monitoring; Complete Time: 09:16 rn EC:08 Rate is 80 beats/min. Rhythm is regular. QRS [place] is Normal. UT interval is normal. QRS rn interval is normal. QT interval is normal. No Q waves. T waves are Normal. No ST changes noted. Clinical impression: Normal ECG. Interpreted by me. Reviewed by me. Administered Medications: 11:16 Drug: ALPRAZolam PO Tablet 1 mg PO once Route: PO; ll1 13:02 Follow up: Response: No adverse reaction; Pain is decreased; RASS: Alert and Calm (0) ll1 13:02 Drug: Decadron - Dexamethasone IVP 10 mg IVP once Route: IVP; Site: right antecubital; ll1 13:18 Follow up: Response: No adverse reaction ll1 Disposition Summary: 12/22/24 12:47 Discharge Ordered Notes: Location: Home rn Problem: new rn Symptoms: have improved rn Condition: Stable rn Diagnosis - Cervical disc disorder with radiculopathy, unspecified cervical region rn - Paresthesia of skin rn - Weakness rn Followup: rn - With: Mickey Chamorro MD - When: 5 - 6 days - Reason: Recheck today's complaints, Re-evaluation by your physician Discharge Instructions: - Discharge Summary Sheet rn - Cervical Radiculopathy rn - Paresthesia rn - Weakness rn Forms: - Medication Reconciliation Form rn - Antibiotic fingernail technician - Prescription Opioid Use rn - Patient Portal Instructions rn - Leadership Thank You Letter rn Prescriptions: - gabapentin 100 mg Oral capsule - take 1 capsule ORAL route 2 times per day As needed; 14 capsule; Refills: 0, rn Product Selection Permitted - Medrol (Lukasz) 4 mg Oral Tablets, Dose Pack - take 1 tablet ORAL route as directed - follow package instructions; 1 packet; rn Refills: 0, Product Selection Permitted Signatures: Dispatcher [employer] EDMS Sher Reece MD MD rn Lewis, Lynsay RN RN ll1 Corrections: (The following items were deleted from the chart) 08:35 08:34 Home Meds: None; ll1 ll1 08:35 08:34 Home Meds: Metoprolol Tartrate Oral; ll1 ll1 08:35 08:34 PMHx: None; ll1 ll1 08:40 08:40 BASIC METABOLIC PANEL+C.LAB.BRZ ordered. EDMS EDMS 08:40 08:40 CBC+H.LAB.BRZ ordered. EDMS EDMS 08:40 08:40 PROBNP+C.LAB.BRZ ordered. EDMS EDMS 08:40 08:40 PROTIME (+INR)+COAG.LAB.BRZ ordered. EDMS EDMS 08:40 08:40 Troponin High Sensitivity+C.LAB.BRZ ordered. EDMS EDMS 08:40 08:40 Chest Single View+RAD.RAD.BRZ ordered. EDMS EDMS
[2024-12-22] MEDS ORDERED: dexAMETHasone 10 MG/ML VIAL ONE (12:56)
[2024-12-22 13:47] VITALS: TEMP 97.8; O2SAT 99
[2024-12-22 13:50] VITALS: BP 143/99
--- NOTE | 2024-12-23 13:26 | EKG ---
Test Date: 2024-12-22 Test Time: 09:50:32 Welt Rougher: ANISHA MEASUREMENT RESULTS: Intervals: Rate: 80 RI: 134 QRSD: 82 QT: 370 QTc: 426 [place]: P: 21 RI: 134 QRS: 6 T: 19 INTERPRETIVE STATEMENTS: Normal sinus rhythm Normal ECG Compared to ECG 10/08/2018 11:55:19 No significant changes Electronically Signed On 12-23-24 13:19:17 CDT by Noam Weiss
== END 2024-12-22 13:19 | disposition home or self-care (01) ==
LOC: ER 08:21
DX: M50.10 Cervical disc disorder with radiculopathy, unspecified cervical region (principal); R53.1 Weakness
CPT/HCPCS: 93005; 85025; 80048; 36415; 85610; 84484; 83880; 70450; 72125; 71045; 70551; 72141; 96374; 99284; J1100